=== PATIENT | male | born 1955 | race Caucasian/White ===

== ENCOUNTER → 2017-09-24 | Outpatient (CLI) | payer OTHER ==
[~2017-09-24] MED LIST: MOVEFREE PO; OMEG10007 PO
--- NOTE | 2017-09-24 09:25 | DIAGNOSTIC IMAGING REPORT ---
ABDOMEN FOR HERNIA CLINICAL HISTORY: GROIN PAIN pain TECHNIQUE: Ultrasound COMPARISON STUDY: None FINDINGS: Small left inguinal fat containing reducible hernia. No evidence of bowel containment. Negative right inguinal region. IMPRESSION: Small left inguinal fat containing hernia. This is reducible. The above report was generated using voice recognition software. It may contain grammatical, syntax or spelling errors. Electronically signed by: Nash Donovan M.D. 09/24/2017 9:24 AM Dictated Date/Time: 09/24/2017 9:23 AM
--- NOTE | 2017-09-24 09:27 | DIAGNOSTIC IMAGING REPORT ---
TESTICULAR ULTRASOUND HISTORY: GROIN PAIN COMPARISON: None. FINDINGS: Right testis: 3.9 x 2.1 x 2.6 cm. There are no intratesticular masses. Normal color flow. Trace hydrocele. The epididymis is unremarkable. Left testis: 4.2 x 1.9 x 2.8 cm. There are no intratesticular masses. Normal color flow. Trace hydrocele. There is a 2 mm cyst within the epididymal head. There is a 7 mm scrotolith identified. IMPRESSION: 1. Normal bilateral testes. 2. Trace bilateral hydroceles. 3. A 7 mm left-sided scrotolith. Electronically signed by: Estuardo Leal M.D. 09/24/2017 9:26 AM Dictated Date/Time: 09/24/2017 9:23 AM
== END | disposition home or self-care (01) ==
LOC: C.ULTRBC 07:56
PROVIDERS: ATTEND Family Medicine
DX: R10.30 Lower abdominal pain, unspecified (principal); K40.90 Unilateral inguinal hernia, without obstruction or gangrene, not specified as recurrent